=== PATIENT | male | born 1990 | race Caucasian/White ===

== ENCOUNTER → 2020-07-20 11:47 | Outpatient (BNVA) | payer BC, SELFPAY | PROVIDERS: PCP Nurse Practitioner Family; Visit Provider Nurse Practitioner Family | DX: E11.9 Type 2 diabetes mellitus without complications (principal); R53.83 Other fatigue; E78.5 Hyperlipidemia, unspecified | CPT/HCPCS: 80061; 83036; 84443 ==

== ENCOUNTER → 2020-12-02 10:01 | Outpatient (BNVA) | payer BC, SELFPAY | PROVIDERS: PCP Nurse Practitioner Family; Visit Provider Nurse Practitioner Family | DX: E11.9 Type 2 diabetes mellitus without complications (principal) | CPT/HCPCS: 82043; 83036 ==